=== PATIENT | female | born 1990 | race Asian ===

== ENCOUNTER 2016-07-03 14:17 | Inpatient (IN) | payer MEDICAID ==
[2016-07-06] MEDS ORDERED: OXYTOCIN/DEXTROSE 5%-WATER 30 UNITS/500 ML BAG IV ONE ×2 (09:16→12:53)
[2016-07-06] MEDS ORDERED: LIDOCAINE HCL 50 ML VIAL PERI PRN (09:16)
[2016-07-06] MEDS ORDERED: ONDANSETRON HCL/PF 2 MG/ML VIAL IV PRN (09:16)
[2016-07-06] MEDS ORDERED: RINGERS SOLUTION,LACTATED 1,000 ML IV PRN (09:16)
[2016-07-06] MEDS ORDERED: RINGERS SOLUTION,LACTATED 1,000 ML IV ONE (09:16)
[2016-07-06 09:36] LABS: Hematocrit 38.4 % (37.0-47.0); Mean Cell Volume 88.9 fl (78-100); Mean Corpuscular Hemoglobin 30.1 pg (27-31); Mean Corpuscular Hgb Conc 33.9 g/dl (32-36); Mean Platelet Volume 9.9 fl (6.0-9.5); Neutrophil % 70.4 % (42-75.0); Platelet Count 158 K/mm3 (150-450); Red Blood Count 4.32 M/mm3 (4.2-5.4); Red Cell Distribution Width 13.1 % (11.5-14.0); White Blood Count 8.6 K/mm3 (4.0-10.5)
[2016-07-06] MEDS ORDERED: BENZOCAINE/MENTHOL 81 SPRAY CAN TP PRN (12:53)
[2016-07-06] MEDS ORDERED: HYDROcodone/ACETAMINOPHEN 1 EACH TABLET PO PRN (12:53)
[2016-07-06] MEDS ORDERED: GLYCERIN/WITCH HAZEL LEAF 40 APPL BOX TP PRN (12:53)
[2016-07-06] MEDS ORDERED: BISACODYL 10 MG SUPP.RECT RC PRN (12:53)
[2016-07-06] MEDS ORDERED: SENNOSIDES 8.6 MG TABLET PO PRN (12:53)
[2016-07-06] MEDS ORDERED: HYDROCORTISONE 30 APPL TUBE TP PRN (12:53)
[2016-07-06] MEDS ORDERED: diphenhydrAMINE HCL 25 MG CAPSULE PO PRN (12:53)
--- NOTE | 2016-07-06 13:02 | OR ---
Operative Report - Dictated Report Narrative: Spontaneous Vaginal Delivery Note: 25 yo, , at 38 5/7 weeks, admitted for SROM in labor and dilated to 4-5 cm. GBS was negative. was complicated by GDM on diet and well controlled. Progressed to complete on her own without complications. The perineum was cleaned with betadine. Pushed with contractions and descent. Head delivered in OA with left hand over the perineum. No nuchal cord. The anterior shoulder delivered, followed by the posterior shoulder and the rest of the baby without difficulty. Baby cried immediately after . Baby placed on maternal abdomen for drying and care by the nursing. Cord was clamped, and cut. Cord blood was obtained. Placenta delivered with gentle traction, intact with 3 vessel cord. Pitocin drip was started after placenta delivered. Exam of the perineum, vaginal and cervix revealed a second degree perineum laceration. This was repaired with 3-0 Vicryl suture in the normal fashion. Fundus was massaged and firm. Bleeding was minimal. Mother and baby tolerated the delivery well. EBL 150 ml. : male,2857 grams, 6 lbs and 4.7 oz. 9/9. Time of delivery: 12:15. Emilia Gibbons MD History for Definition: * The number of deliveries resulting in a live the patient experienced prior to current hospitalization * The previous delivery of live twins or any live multiple gestation is considered one live event. *If primagravida or nulliparous is documented select zero for the number of previous live births. Live Events: 1
[2016-07-06] MEDS: IBUPROFEN 800 MG TABLET PO PRN (13:48)
[2016-07-06] MEDS: DOCUSATE SODIUM 100 MG CAPSULE PO SCH (21:39)
[2016-07-07] MEDS: IBUPROFEN 800 MG TABLET PO PRN (05:34)
[2016-07-07] MEDS: DOCUSATE SODIUM 100 MG CAPSULE PO SCH ×2 (08:03→20:54)
[2016-07-07] MEDS: PRENATAL VIT#96/FERROUS FUM/FA 1 TAB TABLET PO SCH (08:03)
--- NOTE | 2016-07-07 16:16 | PN ---
Subjective - Date and Time Seen Date: 07/07/16 Subjective Narrative: day 1, s/p doing well. . ambulating well. normal lochia. Objective - Vitals Vitals: Last Vital Signs Temp 36.7 C 07/07/16 08:00 Pulse 65 07/07/16 12:23 Resp 17 07/07/16 12:23 BP 114/58 07/07/16 12:23 Pulse Ox 97 07/07/16 12:23 - Exam Constitutional: Present: Alert, Oriented x3, Cooperative Respiratory: Present: no respiratory distress Cardiovascular/Chest: Present: normal peripheral pulses Abdomen: Present: soft, nontender, nondistended, other - fundus firm. Extremity: Present: normal range of motion, no pedal edema, no calf tenderness Skin Exam: Present: normal color, warm/dry, no cyanosis Eye contact: Present: cooperative, good eye contact, normal speech Assessment/Plan Plan Narrative: A: day 1, s/p , stable and well. Plan: routine care. for discharge home tomorrow. discharge instructions given in Faroese today. Emilia Gibbons MD
[2016-07-08] MEDS: IBUPROFEN 800 MG TABLET PO PRN (06:53)
[2016-07-08 07:35] VITALS: BP 114/74
[2016-07-08] MEDS: PRENATAL VIT#96/FERROUS FUM/FA 1 TAB TABLET PO SCH (08:20)
[2016-07-08] MEDS: DOCUSATE SODIUM 100 MG CAPSULE PO SCH (08:20)
--- NOTE | 2016-07-08 14:40 | PN ---
Subjective - Date and Time Seen Date: 07/08/16 Time: 14:39 Objective - Vitals Vitals: Last Vital Signs Temp 37.5 C 07/08/16 07:26 Pulse 70 07/08/16 07:26 Resp 20 07/08/16 07:26 BP 114/74 07/08/16 07:26 Pulse Ox 99 07/08/16 07:26 Patient seen earlier this morning prior to discharge. Patient denies complaints. Pumping and feeding infant breastmilk. Lochia wnl Abdomen - soft, nontender Uterus - firm, at umbilicus - 2 No calf tenderness Impression: day #2 - s/p spontaneous vaginal delivery. Plan: Routine discharge instructions
== END 2016-07-08 12:45 | disposition home or self-care (01) | DRG 775 ==
LOC: LAB 14:17 → OB 07-06 08:56
PROVIDERS: ADMIT Obstetrics & Gynecology; ATTEND Obstetrics & Gynecology
PROC: 10E0XZZ Delivery of Products of Conception, External Approach (ICD-10-PCS; principal; 2016-07-06)
PROC: 0KQM0ZZ Repair Perineum Muscle, Open Approach (ICD-10-PCS; 2016-07-06)
PROC: 4A1HXCZ Monitoring of Products of Conception, Cardiac Rate, External Approach (ICD-10-PCS; 2016-07-06)
DX: O24.420 Gestational diabetes mellitus in childbirth, diet controlled (principal); O70.1 Second degree perineal laceration during delivery; O42.92 Full-term premature rupture of membranes, unspecified as to length of time between rupture and onset of labor; Z3A.39 39 weeks gestation of pregnancy; Z37.0 Single live birth